=== PATIENT | female | born 1975 | race Caucasian/White ===

== ENCOUNTER 2017-07-21 19:08 | Emergency (ER) | payer BC ==
[~2017-07-21] VITALS: Ht 167.6 cm; Wt 90.2 kg
[~2017-07-21 19:08] MED LIST: CLARITIN,ALAVAR10 MG PO; DOCUSATE SODIU100 MG PO; IBUPROFEN800 MG PO; LEVAQUIN750 MG PO; OXYCODONE HCL5 MG PO; PROVENTIL HFA6.7 GM IH
[2017-07-21 19:56] LABS: HEMATOCRIT 41.3 % (36.0-46.0); MCH 30.1 PG (29.0-34.0); MCHC 34.4 G/DL (30.0-36.0); MCV 87.5 FL (83-99); PLATELET COUNT 262 K/uL (156-360); RBC DIS.WIDTH-CV 11.5 % (11.8-14.6); RBC DIS.WIDTH-SD 37.2 % (39-53); RED BLOOD COUNT 4.72 M/uL (3.80-5.20); WHITE BLOOD COUNT 9.2 K/uL (4.1-10.2)
[2017-07-21 20:12] LABS: ANION GAP 8 MEQ/L (2-14); CHLORIDE 103 mEq/L (99-109); GLUCOSE 108 mg/dL (70-99); POTASSIUM 3.4 mEq/L (3.7-5.4); SODIUM 137 mEq/L (136-147)
[2017-07-21 20:13] LABS: TOTAL BILIRUBIN 0.8 mg/dL (0.0-1.0)
[2017-07-21 20:15] LABS: ALKALINE PHOSPHATASE 129 IU/L (3-129); GFR ESTIMATE (CALCULATED) > 59 mL/min/
[2017-07-21 20:16] LABS: UREA NITROGEN (BUN) 10 mg/dL (9-23)
[2017-07-21 20:32] LABS: TROP-I INTERPRETATION NEGATIVE; TROPONIN-I < 0.01 ng/mL (0.0-0.30)
[2017-07-21 22:18] VITALS: BP 135/83
== END 2017-07-21 22:23 | disposition home or self-care (01) ==
LOC: EME 19:08
PROVIDERS: Nurse Practitioner Family
DX: M54.9 Dorsalgia, unspecified (principal); R00.2 Palpitations; R20.2 Paresthesia of skin; R06.02 Shortness of breath
CPT/HCPCS: 71020; 80053; 84439; 84443; 84484; 85027; 85379; 93005; 99281; 99284